=== PATIENT | male | born 1995 | race Caucasian/White ===

== ENCOUNTER → 2017-09-15 | Outpatient (CLI) | payer MEDICARE, OTHER ==
[~2017-09-15] MED LIST: ACET325 PO; ACET325UDC; AMOCLA875 PO; CLIN300 PO; CODACE30 PO; CODACEE120 PO; CYCL10 PO; Crutch1 EACH MISC; HYDACE5 PO; HYDR1TAB94 PO; IBUP600 PO; IBUP800 PO; MOTION RELIEF25 MG PO; Miralax17 GM PO; Norco 5-325 Ta1 EACH PO; OXYACE7.5T PO; PENVK500 PO; RXCODACET PO; SULTRIDS PO; Zofran8 MG PO
== END | disposition home or self-care (01) ==
LOC: LAB SHORT 18:52 → LAB EV 18:52
DX: L03.113 Cellulitis of right upper limb (principal)
CPT/HCPCS: 87070; 87075; 87205

== ENCOUNTER 2019-03-01 09:42 | Emergency (ER) | payer MEDICARE, OTHER ==
[~2019-03-01] VITALS: Ht 172.7 cm; Wt 97.1 kg
[~2019-03-01 09:42] MED LIST changes: +Carafate1 GM/10 ML PO; +Prilosec Otc20 MG PO
[2019-03-01] MEDS ORDERED: NAPR550 PO (11:23)
== END 2019-03-01 11:50 | disposition home or self-care (01) ==
LOC: ER 09:42
DX: M25.561 Pain in right knee (principal); F90.9 Attention-deficit hyperactivity disorder, unspecified type; Z79.899 Other long term (current) drug therapy
CPT/HCPCS: 73562-LT; 99283-25

== ENCOUNTER 2022-04-28 08:47 | Day surgery (SDC) | payer MEDICARE, OTHER ==
[~2022-04-28] VITALS: Ht 188 cm; Wt 106.0 kg
[~2022-04-28 08:47] MED LIST changes: +NAPR550 PO
--- NOTE | 2022-04-28 11:40 | NUR ---
04/28/22 1140 Maicol Mendoza PT STATES THAT PAIN IS A 6/10. STATES THAT IT IS TOLERABLE SO NO IV MEDICATION GIVEN AT THIS TIME. PT DENIES NAUSEA. WILL LOOK INTO GIVING HIM A PAIN PILL PRIOR TO DISCHARGE.
== END 2022-04-28 12:22 | disposition home or self-care (01) ==
LOC: ORSCSDS 08:47
PROVIDERS: Orthopaedic Surgery
PROC: 0SBD4ZZ Excision of Left Knee Joint, Percutaneous Endoscopic Approach (ICD-10-PCS; principal; 2022-04-28 10:00)
DX: S83.242A Other tear of medial meniscus, current injury, left knee, initial encounter (principal); F90.9 Attention-deficit hyperactivity disorder, unspecified type
CPT/HCPCS: A9270; J0171; J0690; J1100; J1885; J2250; J2405; J2704; J2795; J3010; J7120

== ENCOUNTER 2022-08-07 18:35 | Emergency (ER) | payer OTHER, MEDICARE ==
[~2022-08-07] VITALS: Ht 185.4 cm; Wt 108.4 kg
[2022-08-07 22:45] VITALS: BP 140/89
== END 2022-08-07 23:08 | disposition home or self-care (01) ==
LOC: ER 18:35
DX: M25.561 Pain in right knee (principal); V43.52XA Car driver injured in collision with other type car in traffic accident, initial encounter; Z88.1 Allergy status to other antibiotic agents
CPT/HCPCS: 73562-RT; 99283-25